=== PATIENT | female | born 1960 | race Caucasian/White ===

== ENCOUNTER 2016-11-29 23:21 | Emergency (ER) | payer OTHER ==
[~2016-11-29] VITALS: Ht 152.4 cm; Wt 73.5 kg
[2016-11-29 23:25] VITALS: Ht 152.4 cm; Wt 73.5 kg
--- NOTE | 2016-11-30 03:45 | ERD ---
ER Documentation Chief Complaint Date/Time DATE: 11/30/16 TIME: 03:43 Chief Complaint left knee pain sp fall 2 steps stairs HPI 56-year-old female presents here in emergency department for complaints of bilateral knee pain for 3 days, today, patient was walking, because of the pain , she felt her left knee lock and fell. Landed on both knees. Patient discussed the pain as throbbing pain, 8/and scale, is worse upon movement. Patient did not take any medications of his symptoms. Patient denies any numbness or tingling. Patient denies any fever or chills. Patient denies any redness or swelling. ROS All systems reviewed and are negative except as per history of present illness. Medications Home Meds Reported Medications [none] Unknown Strength No Conflict Check 11/30/16 Allergies Allergies: Coded Allergies: No Known Drug Allergies (Verified Allergy, Mild, 05/27/10) PMhx/Soc Medical and Surgical Hx: pt denies Medical Hx, pt denies Surgical Hx History of Surgery: No Anesthesia Reaction: No Hx Neurological Disorder: No Hx Respiratory Disorders: No Hx Cardiac Disorders: No Hx Psychiatric Problems: No Hx Miscellaneous Medical Probl: No Hx Alcohol Use: No Hx Substance Use: No Hx Tobacco Use: No FmHx Family History: No coronary disease, No diabetes, No other Physical Exam Vitals Vital Signs Date Time Temp Pulse Resp B/P Pulse Ox O2 Delivery O2 Flow Rate FiO2 11/29/16 23:25 98.5 78 20 140/62 100 Physical Exam GENERAL: The patient is well developed and appropriate for usual state of health, in no apparent distress. CHEST: Clear to auscultation bilaterally. There are no rales, wheezes or rhonchi. HEART: Regular rate and rhythm. No murmurs, clicks, rubs or gallops. No S3 or S4. ABDOMEN: Soft, nontender and nondistended. Good bowel sounds. No rebound or guarding. No gross peritonitis. No gross organomegaly or masses. No Stapleton sign or McBurney point tenderness. BACK: No midline or flank tenderness. EXTREMITIES: To do full range of motion of bilateral knees without any restriction, swelling noted on the left knee. No deformity noted. Equal pulses bilaterally. Full range of motion of other joints of the body. Grossly neurovascularly intact. NEURO: Alert and oriented. Cranial nerves 2-12 intact. Motor strength in all 4 extremities with 5/5 strength. Sensation grossly intact. Normal speech and gait. SKIN: There is no apparent rash or petechia. The skin is warm and dry. HEMATOLOGIC AND LYMPHATIC: There is no evidence of excessive bruising or lymphedema. No gross cervical, axillary, or inguinal lymphadenopathy. Results 24 hrs Current Medications Medications (Trade) Dose Ordered Sig/Alvarez Route PRN Reason Start Time Stop Time Status Last Admin Dose Admin Acetaminophen/ Hydrocodone Bitart ([place] (5/325)) 1 tab ONCE ONCE PO 11/30/16 04:00 11/30/16 04:01 DC 11/30/16 03:43 Patient was given medication for pain here in emergency department, after treatment, patient verbalized feeling much better. Patient's pain is improved. PROCEDURE: XR Knee bilateral. CLINICAL INDICATION: Trauma TECHNIQUE: AP, lateral and oblique view of the bilateral knee were obtained. COMPARISON: There are no similar studies submitted for comparison. FINDINGS: There is normal mineralization.There is no acute fracture or dislocation.No destructive lesion is identified. Some mild narrowing of the medial compartments is noted within both knees, most compatible with osteoarthritis. There is no joint effusion. IMPRESSION: No fracture or dislocation. RPTAT: HIKT .Deepak Santa MD, MD Date Time Electronically viewed and signed by .Deepak Santa MD, MD on 11/30/2016 05:06 .T/ CC: AYAH DUMONT HR ADMINISTRATIVE ASSISTANT Procedures/MDM Medical Decision Making: Patient's pain is most likely consistent with a contusion or a sprain. There is no suspicion for neurovascular compromise. Patient has intact sensation and circulation of the affected extremity. There is low suspicion for septic arthritis. Patient does not have any fever. Radiology exams of the affected area does not show any fracture or dislocation. Disposition: Home. Patient is given prescription for ibuprofen for pain, [place] for severe pain. Patient was advised to elevate the affected area and apply ice on affected area. Patient was advised that if symptoms are worse, numbness, tingling, high fever, unable to move joint, worsening symptoms, to return to emergency department immediately. Otherwise, patient is advised to follow up with the primary care doctor in 5-7 days for reevaluation of symptoms. Departure Diagnosis: Primary Impression: Knee pain Laterality: bilateral Chronicity: acute Qualified Code: M25.561 - Acute pain of both knees Condition: Stable Patient Instructions: Knee Pain, Uncertain Cause Additional Instructions: Patient is given prescription for ibuprofen for pain, [place] for severe pain. Patient was advised to elevate the affected area and apply ice on affected area. Patient was advised that if symptoms are worse, numbness, tingling, high fever, unable to move joint, worsening symptoms, to return to emergency department immediately. Otherwise, patient is advised to follow up with the primary care doctor in 5-7 days for reevaluation of symptoms. AYAH DUMONT NP Nov 30, 2016 03:45
[2016-11-30] MEDS ORDERED: HYDROCODONE/APAP (5/325) TAB PO ONE (04:00)
--- NOTE | 2016-11-30 05:06 | RADRPT ---
PROCEDURE: XR Knee bilateral. CLINICAL INDICATION: Trauma TECHNIQUE: AP, lateral and oblique view of the bilateral knee were obtained. COMPARISON: There are no similar studies submitted for comparison. FINDINGS: There is normal mineralization.There is no acute fracture or dislocation.No destructive lesion is id entified. Some mild narrowing of the medial compartments is noted within both knees, most compatible with osteoarthritis. There is no joint effusion. IMPRESSION: No fracture or dislocation. RPTAT: HIKT .Deepak Santa MD, MD Date Time Electronically viewed and signed by .Deepak Santa MD, MD on 11/30/2016 05:06 .T/
[2016-11-30] MEDS ORDERED: IBUP-1542 PO (05:18)
[2016-11-30] MEDS ORDERED: HYDR-906 PO (05:18)
[2016-11-30 05:32] VITALS: BP 123/67; PULSE 65; RESP 16
== END 2016-11-30 05:34 | disposition home or self-care (01) ==
LOC: FTE 23:21
DX: S80.02XA Contusion of left knee, initial encounter (principal); S80.01XA Contusion of right knee, initial encounter; W10.9XXA Fall (on) (from) unspecified stairs and steps, initial encounter; Y92.9 Unspecified place or not applicable
CPT/HCPCS: 73562; Z7610

== ENCOUNTER 2017-11-24 17:00 | Emergency (ER) | END 2017-11-24 23:04 | disposition home or self-care (01) ==